=== PATIENT | male | born 1970 | race Caucasian/White ===

== ENCOUNTER 2020-10-19 09:55 | Emergency (ER) | payer OTHER, SELFPAY ==
[2020-10-19 10:12] VITALS: BP 101/73; PULSE 94; RESP 16; TEMP 36.1; O2SAT 98
[2020-10-19 10:16] VITALS: BP 101/73; PULSE 94; RESP 16; TEMP 36.1; O2SAT 98
[2020-10-19] MEDS: LIDOCAINE/PRILOCAINE CREAM 2.5-2.5% TUBE 1 EACH TOPICAL (10:23)
[2020-10-19] MEDS: cefTRIAXone 1 GM VIAL 0.75 GM IM (10:38)
--- NOTE | 2020-10-19 10:45 | ED.SKABFB ---
HPI - Skin/Abscess/Foreign Bdy General Chief complaint: Wound/Laceration Stated complaint: boil on back Source: patient and RN notes reviewed Limitations: no limitations History of Present Illness HPI narrative: The patient, a smoker/drinker on min. meds-yet without doctor, presents with skin eruption. Patient notes half -one week worsening of a least one-year history of swelling on his left back. Patient states he may have had a cyst which is now worsened to include pain, redness and mild elicited discharge. Symptoms are mild, worse with palpation; patient advised to go to hospital if not improved. Family members squeezed area and there is discharge from 2 sites; discussed plan and patient agrees to I&D and pack the symptomatic areas [not a larger connecting incision]. Related Data Allergies Allergy/AdvReac Type Severity Reaction Status Date / Time No Known Allergies Allergy Mild Verified 08/01/18 14:18 Review of Systems Review of Systems: Narrative: General/Constitutional: No weight loss,fever Eyes: N0: Redness,discharge Ears/Nose/Throat: No: Epistaxis,ear discharge Respiratory: Denies: Hemoptysis Gastrointestinal: No Vomiting, Bleeding-rectal Skin: REPORTS lumps, eruption Neurologic: No Focal Weakness,Sz Hematologic: Denies: Petechiae/Purpura Psychiatric: No: Suicida ideationl All Other Systems: Reviewed and Negative PMFSH Comments At time of signature, agree with nursing past medical, surgical, social and family history. There is no relevant family history pertinent to the presenting complaint Exam Narrative: Exam Narrative: General Appearance: Well appearing, Conjunctiva clear Ears: External ear normal Nose: Normal nose Mouth/Throat: Normal appearing, Normal lips Neck: Supple Respiratory: Airway patent, No respiratory distress Musculoskeletal: Full ROM Skin-left back : Double palm-sized area of cellulitis centered on infected, indurated area with 2 off-central puncta; otherwise warm, Dry Neurological: A&O x3, CN II-X intact Psychiatric: Normal mood, Normal affect Course Vital Signs Vital signs: Vital Signs Temperature 96.9 F L 10/19/20 10:12 Pulse Rate 94 10/19/20 10:12 Respiratory Rate 16 10/19/20 10:12 Blood Pressure 101/73 10/19/20 10:12 Pulse Oximetry 98 10/19/20 10:12 Temperature 96.9 F L 10/19/20 10:16 Pulse Rate 94 10/19/20 10:16 Respiratory Rate 16 10/19/20 10:16 Blood Pressure 101/73 10/19/20 10:16 Pulse Oximetry 98 10/19/20 10:16 Procedures Abscess I/D back: Date of Incision: 10/19/20 Side (if applicable): right Local Anesthetic: other anesthetic (Topical LAT) Technique: incised with #11 blade and probed loculations Amount of fluid expressed (mL): 5 Irrigation: No Packing used?: iodoform I&D Results: Pus and Blood Discharge Plan Discharge Clinical Impression: Abscess, Cellulitis of back Patient Disposition: Home, Self-Care Condition: Improved Instructions: Antibiotic Form, Abscess (ED) Additional Instructions: remove packing as discussed Return if worsens to hospital per handout Prescriptions: New clindamycin HCl 300 mg capsule 300 mg PO TID Qty: 21 RF: 0 tramadol 50 mg tablet 75 mg PO Q6H PRN (Reason: pain) Qty: 15 RF: 1 Follow-up/Referrals: UNKNOWN,DOCTOR [Primary Care Provider] -
== END 2020-10-19 11:47 | disposition home or self-care (01) ==
PROVIDERS: Emergency Provider Emergency Medicine
DX: L02.212 Cutaneous abscess of back [any part, except buttock and flank] (principal); L03.312 Cellulitis of back [any part except buttock and flank]
CPT/HCPCS: 10061; 96372; 99213; G0463; J0696

== ENCOUNTER 2021-01-30 08:32 | Emergency (ER) | payer OTHER, SELFPAY ==
[2021-01-30 08:44] VITALS: BP 98/72; PULSE 84; RESP 16; TEMP 36.1; O2SAT 98
[2021-01-30 08:54] VITALS: BP 110/80
--- NOTE | 2021-01-30 09:05 | ED.GENADULT ---
HPI - General Adult General Chief complaint: Extremity Injury, Upper Stated complaint: left 4th finger infection Time Seen by Provider: 01/30/21 09:05 Source: patient and RN notes reviewed Mode of arrival: ambulatory Limitations: no limitations History of Present Illness HPI narrative: 50-year-old male presents with complaints of LT 4th (ring) finger swelling, warmth, tenderness, and redness for the past 7 days. Sigifredo reports increasing symptoms and areas to knees over the past 3 days. No treatment. No known injury. Denies numbness or tingling. No weakness of finger. Denies fever or chills. Denies immobility. Exacerbation is movement and palpation of finger. Relieving factor is rest. Denies break in skin or drainage. Denies abdominal pain, nausea, or vomiting. No history of MRSA. Dominant hand is the RIGHT HAND. Tetanus [id number], will update today. The patient reports he has not been diagnosed with COVID-19. The patient reports he is not waiting for the results of a COVID-19 lab test. The patient reports he does not have a new or worsening cough, or dyspnea. The patient reports he does not have any rhinorrhea, congestion, sore throat, loss of taste or smell, and diarrhea. Denies recent traveling. Denies concerns for COVID-19 or exposures. At this time, patient is not suspected of having COVID-19. Some parts of this dictation were generated by voice recognition software and may contain typographical and/or grammatical inaccuracies. Related Data Allergies Allergy/AdvReac Type Severity Reaction Status Date / Time No Known Allergies Allergy Mild Verified 01/30/21 08:54 Review of Systems Review of Systems: Narrative: CONSTITUTIONAL: Denies fever, chills, sweats. EYES: Denies visual changes, redness, discharge. ENT: Denies rhinorrhea, congestion, sore throat, otalgia. CARDIOVASCULAR: Denies chest pain, palpitations, edema. RESPIRATORY: Denies dyspnea, wheezing, cough. GASTROINTESTINAL: Denies abdominal pain, nausea, vomiting, diarrhea. SKIN: Denies rash or itching. Complains of LT 4th (ring) finger swelling, warmth, pain, and redness. Redness and painful areas to knees. MUSCULOSKELETAL: Denies acute back pain or myalgia. Complains of LT 4th (ring) finger warmth, pain, redness, and swelling. Red, painful areas to knees. Drainage from RT knee. NEUROLOGIC: Denies numbness, or focal weakness. PSYCHIATRIC: Denies anxiety or depression. All other systems reviewed are negative, except as documented in HPI and below. [facility] Past Medical History Medical History Smoker Surgical History Surgical History (Updated 01/30/21 @ 09:22 by MONY Laguerre) No significant past surgical history Family History Family History (Updated 01/30/21 @ 09:23 by MONY Laguerre) Father Alive and well Mother Diabetes mellitus Social History Social History (Updated 01/30/21 @ 09:24 by MONY Laguerre) Smoking packs per day: 0.5 Smoking cigarettes per day: 10.0 Smoking status: Current every day smoker Tobacco type: cigarettes Second hand tobacco smoke exposure: Yes Alcohol intake: current Substance use: current Substance use type: marijuana Living arrangements: with family Occupation/Education: unemployed Gender identity (if verbalized by the patient): Male Comments At time of signature, agree with the nurse past medical, surgical, social, and family history. There is no relevant family history pertinent to the presenting complaint. Exam Narrative: Exam Narrative: GENERAL: This is a well-nourished, well-developed patient, in no apparent distress. HEAD: Normocephalic, atraumatic. EYES: PERRL. Sclera clear/white. Vision is grossly intact. NECK: Neck supple, non-tender without lymphadenopathy, masses, or thyromegaly. CARDIOVASCULAR: Regular rate and rhythm without murmurs, gallops, or rubs. RESPIRATORY: Clear to auscultation. Breath sounds equal bilaterally. No wheezes, ra
[2021-01-30] MEDS: TETANUS,DIPHTHERIA,AC PERTUSSIS ADULT (0.5 ML) BOOSTRIX IM (09:21)
== END 2021-01-30 09:39 | disposition home or self-care (01) ==
PROVIDERS: Emergency Provider Nurse Practitioner Family
DX: L03.012 Cellulitis of left finger (principal); L73.9 Follicular disorder, unspecified; Z23 Encounter for immunization; F17.210 Nicotine dependence, cigarettes, uncomplicated
CPT/HCPCS: 10160; 87070; 87075; 87147; 87205; 90471; 90715; 99213; G0463

== ENCOUNTER 2022-09-04 18:31 | Emergency (ER) | payer OTHER, SELFPAY ==
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
[2022-09-04 18:40] VITALS: BP 138/96; PULSE 93; RESP 14; TEMP 36.6; O2SAT 100
[2022-09-04 18:49] VITALS: BP 138/96; PULSE 93; RESP 14; TEMP 36.6; O2SAT 100
== END 2022-09-04 19:22 | disposition home or self-care (01) ==
PROVIDERS: Emergency Provider Nurse Practitioner
DX: T25.231A Burn of second degree of right toe(s) (nail), initial encounter (principal); T25.221A Burn of second degree of right foot, initial encounter; X18.XXXA Contact with other hot metals, initial encounter; F17.210 Nicotine dependence, cigarettes, uncomplicated; F12.90 Cannabis use, unspecified, uncomplicated
CPT/HCPCS: 99213; A9270; G0463